=== PATIENT | female | born 1985 | race Caucasian/White ===

== ENCOUNTER 2020-03-02 20:00 | Inpatient (IN) | payer OTHER, SELFPAY ==
[2020-03-02 20:52] VITALS: BP 106/67; PULSE 100
--- NOTE | 2020-03-02 20:56 | P.PNAN_ITS ---
Anes - Eval Pre Procedure Procedure: labor epidural Date/Time: 03/02/20 20:56 Surgeon: Sushma Preop Diagnosis: pain during labor Pre Op Diagnosis: Labor Patient Data Age: 34 Gender: F Height: Weight: Last Vital Signs Pulse 100 03/02/20 20:52 BP 106/67 03/02/20 20:52 Allergies Allergy/AdvReac Type Severity Reaction Status Date / Time No Known Allergies Allergy Verified 02/23/20 13:40 Home Medications Medication Instructions Recorded Confirmed Type PNV cmb#95-ferrous fumarate-FA 1 tablet PO DAILY 02/23/20 02/23/20 History [] Laboratory Tests 03/02/20 03/02/20 20:51 20:51 WBC Pending RBC Pending Hgb Pending Hct Pending MCV Pending MCH Pending MCHC Pending RDW Pending Plt Count Pending MPV Pending Immature Gran % (Auto) Pending Neut % (Auto) Pending Lymph % (Auto) Pending [place] % (Auto) Pending Eos % (Auto) Pending Baso % (Auto) Pending Lymph # (Auto) Pending [place] # (Auto) Pending Eos # (Auto) Pending Baso # (Auto) Pending Abs Immat Gran (auto) Pending Absolute Neuts (auto) Pending Absolute Nucleated RBC Pending Nucleated RBC % Pending RPR Pending Patient hx anesthesia problems: none Family hx anesthesia problems: none PMFSH Family History Family History (Updated 02/23/20 @ 13:42 by Rosana Pimentel RN) Mother Hypertension Social History Social History Substance use: never Spiritual care concerns: No Exam Day of Procedure 03/02/20 20:56
[2020-03-02 20:57] LABS: Basophils Percent Auto 0.1 % (0.2-1.2); Eosinophils Absolute Auto 0.1 K/mm3 (0-0.3); Eosinophils Percent Auto 0.7 % (0-4.4); Hematocrit 38.3 % (37.0-47.0); Hemoglobin 13.1 g/dL (12.0-15.0); Immature Granulocyte Absolute 0.06 K/mm3 (0.00-0.031); Immature Granulocyte Percent A 0.6 % (0-0.5); Lymphocytes Percent Auto 17.1 % (18.3-44.2); Mean Corpuscular HGB Conc 34.2 g/dl (32-36); Mean Corpuscular Hemoglobin 32.6 pg (26-34); Mean Corpuscular Volume 95.3 fl (80-100); Mean Platelet Volume 11.2 fl (7.4-10.4); Monocytes Absolute Auto 0.7 K/mm3 (0.1-0.6); Monocytes Percent Auto 6.2 % (2.6-8.5); Neutrophils Percent Auto 75.3 % (45.5-73.1); Platelet Count Result 215 k/mm3 (150-375); Red Blood Count 4.02 M/mm3 (4.2-5.4); Red Cell Distribution Width 12.3 % (11.5-14.5); White Blood Count 10.5 K/mm3 (4.5-10.0)
[2020-03-02 21:00] VITALS: BP 110/70; PULSE 85; TEMP 36.6
[2020-03-02] MEDS: LACTATED RINGERS 1,000 ML 125 ML IV CONT (21:02)
[2020-03-02] MEDS: AMPICILLIN 2 GM/NS 100 ML 2 GM/100 ML BAG IVPB (21:03)
[2020-03-02 21:04] VITALS: BMI 34.5
--- NOTE | 2020-03-02 21:05 | LDADM ---
This patient, Cadence Asif, was admitted to Labor/Delivery/Recovery 106 on 03/02/20 at 20:00. Plans for labor, pain management and were discussed with patient. Patient/family oriented to hospital policies and general routines including ID bracelet, bed and alarms, visiting hours, pain management, procedures, bathroom and other care routines, personal items, smoking policy, room service/diet and guest tray routines, security routines, and visiting hours. Patient/Family are encouraged to report perceived risks to care and to ask questions if they do not understand what they are told or what they should do. See OBIX for further documentation.
--- NOTE | 2020-03-02 23:00 | P.HPUP_ITS ---
History and Physical Update Update Date/Time: 03/02/20 23:00 34 yo at 36w5d who presents complaining of contractions and possible leakage of fluid. She endorses good FM. She denies any vaginal bleeding. History and Physical has been reviewed, including an updated exam of the patie nt. There are NO changes in the patient's condition. Risks, benefits, and alternatives have been discussed and questions answered. Patient agrees to proceed with procedure. A/P 34 yo at 36w5d who presents in labor Rom plus negative 5 cm contractions q5 min FHT cat 1 GBS +, PCN in labor routine admission orders expectant management
[2020-03-02 23:55] VITALS: BP 119/69; PULSE 65; PULSE 66; O2SAT 100
[2020-03-02 23:57] VITALS: BP 120/74; PULSE 69
[2020-03-03] VITALS (143 sets, daily range): BP systolic 80–131; BP diastolic 38–90; PULSE 57–116; RESP 16–18; TEMP 36.4–37.3; O2SAT 94–100
[2020-03-03] MEDS: LACTATED RINGERS 1,000 ML 125 ML IV CONT ×3 (00:56→09:07)
[2020-03-03] MEDS: AMPICILLIN 1 GM/NS 50 ML 1 GM/50 ML BAG IVPB ×3 (00:56→09:06)
--- NOTE | 2020-03-03 07:45 | PM.OBPNLAB ---
Pain Control Date/time seen: 03/03/20 07:45 Pain control: tolerating well Pelvic Exam Dilation (cm): 6 Effacement (%): 70 station: -3 Amniotic membrane status: Ruptured Contractions Monitor mode: External Contraction frequency: 8 Status status: Category l Assessment and Plan Plan: begin patient augmentation (will start pitocin )
[2020-03-03] MEDS: OXYTOCIN 30 UNITS/NS 500 ML 30 UNITS/500 ML BAG IV CONT (08:15)
[2020-03-03 08:42] LABS: Rapid Plasma Reagin Non-Reactive (NonReactive)
--- NOTE | 2020-03-03 09:54 | PM.OBPRVD ---
OB - Delivery Note Procedure Procedure: Patient pushed for a spontaneous vaginal delivery. The fetus was delivered atraumatically and placed on the maternal abdomen. The cord was clamped and cut after 1 minute of life. The cord was double clamped and cut and a segment of cord was collected for cord gases. Cord blood was collected for blood type and Coomb's testing. The placenta delivered spontaneously and was noted to be intact. The perineum was inspected and there was a 2nd degree perineal laceration. The laceration was repaired with 3-0 vicryl in the usual fashion. The uterus was firm and good hemostasis was noted. The patient and fetus were stable in the delivery room. events: Labor < 37 Weeks Intrapartal events: None Induction method: none Delivery augmentation: pitocin Delivery monitor: external FHT Route of delivery: Episiotomy description: None Laceration description: Perineal - 2nd Degree Delivery repair: vicryl Specimen: No Estimated blood loss (mL): 300 Anesthesia type: Epidural Disposition: floor () Complications: No immediate complications Baby Date of : 03/03/20 Time of : 09:42 Weeks of gestation at delivery: 36 Infant gender: Male Weight (pounds): 8 Weight (ounces): 8 presentation: vertex position: Right Occiput Anterior Placenta delivery description: Spontaneous cord vessel description: 3 Vessels score one minute: 9 score five minutes: 9
[2020-03-03] MEDS: IBUPROFEN 600 MG TABLET PO ×2 (13:01→21:11)
[2020-03-03] MEDS: BENZOCAINE 20% AER SPR (*SP) 56 GM CAN 1 SPRAY TOPICAL (13:02)
[2020-03-03] MEDS: WITCH HAZEL 40 PADS 1 PAD TOPICAL (13:02)
[2020-03-03] MEDS: ACETAMINOPHEN 325 MG TABLET 650 MG PO (14:24)
[2020-03-04 04:38] LABS: Hematocrit 32.8 % (37.0-47.0); Hemoglobin 11.1 g/dL (12.0-15.0)
[2020-03-04] MEDS: ACETAMINOPHEN 325 MG TABLET 650 MG PO ×2 (07:44→16:22)
[2020-03-04] MEDS: DOCUSATE SODIUM 100 MG CAPSULE PO ×2 (07:44→16:21)
[2020-03-04] MEDS: MULTIVIT/MIN/PREN/FOL AC/IRON TABLET 1 TAB PO (07:44)
[2020-03-04] MEDS: IBUPROFEN 600 MG TABLET PO ×2 (07:44→16:21)
[2020-03-04] MEDS: BENZOCAINE 20% AER SPR (*SP) 56 GM CAN 1 SPRAY TOPICAL (07:45)
[2020-03-04 08:00] VITALS: BP 109/54; PULSE 61; RESP 18; TEMP 36.3; O2SAT 100
--- NOTE | 2020-03-04 08:04 | P.PNOB_ITS ---
OB - PN: Subj Subjective Date/time seen: 03/04/20 08:04 Patient comments: no complaints, pain well controlled and tolerating diet [place] feeding status: exclusively breast feeding Narrative: patient doing well this AM. No complaints. Pain is well controlled. She reports minimal bleeding. She is ambulating and voiding without difficulty. She is tolerating PO. She denies N/V, fever, chills. OB - PN: Obj Data Labs CBC & Chem 7: 03/04/20 03:45 Labs: Laboratory Results - last 24 hr 03/02/20 03/04/20 20:51 03:45 Hgb 11.1 L Hct 32.8 L RPR Non-reactive OB - PN A/P Plan day: 1 Plan: routine care Comments: patient doing well H/H stable plan for infant circumcision today continue routine care Time Spent With Patient Time: Total time spent is greater than 50% in coordination of care (as documented) at patient's floor/unit and/or counseling patient: Time with patient: less than 15 minutes Review of Systems Review of Systems: All systems reviewed & are unremarkable except as noted in HPI and below Exam Const: General: comfortable and no acute distress Resp: Effort & Inspection: normal respiratory effort Cardio: Rate: regular rate GI: GI Palp: Yes Soft to palpation and No Tenderness to palpation present (GI) Auscultation: normal bowel sounds Other: fundus firm and below umbilicus. Psych: Affect: normal affect
--- NOTE | 2020-03-04 08:08 | WPDANLDPN2 ---
Anes-Prog Note L&D Date/Time: 03/04/20 08:08 Comfortable throughout: labor and delivery Neuraxial method: epidural Epidural/Spinal procedure site: clean & non-tender Neuro status: Neuro function grossly intact. Cardiovascular status: normal Respiratory status: normal Airway patency: baseline Mental status: baseline Post-Op hydration status: normal Vital Signs: Last Vital Signs Temp 36.4 C L 03/03/20 18:30 Pulse 64 03/03/20 20:00 Resp 16 03/03/20 20:00 BP 101/66 03/03/20 18:30 Pulse Ox 98 03/03/20 20:00 Post-procedural complaints: none Patient feedback: Patient satisfied with anesthetic care.
--- NOTE | 2020-03-04 09:38 | PC.NURSE ---
Self care and infant care discharge instructions given to pt. including follow up visit date and time. Mother verbalized understanding. No questions or concerns noted. Pleasant and cooperative.
[2020-03-04 19:40] VITALS: BP 102/55; PULSE 55; RESP 18; TEMP 36.6; O2SAT 100
[2020-03-04] MEDS: CALCIUM CARBONATE (TUMS) 500 MG (200 MG ELEMENTAL) PO (20:04)
--- NOTE | 2020-03-05 06:36 | P.DS_ITS ---
OB - DS: Summary OB Procedures : None OB Procedures Intrapartum: Spontaneous Vag Delivery OB Procedures: : None Status at Discharge Functional status at discharge: independent ambulation Overall status at discharge: patient is back to baseline Time Spent with Patient Time attestation: Total time spent providing and/or coordinating discharge services: Time spent: Less than 30 minutes Exam Const: General: comfortable and no acute distress Resp: Effort & Inspection: normal respiratory effort Auscultation: clear to auscultation bilaterally Cardio: Rate: regular rate GI: GI Palp: Yes Soft to palpation Auscultation: normal bowel sounds Other: Fundus firm below umbilicus Psych: Appearance: grossly normal Mental Status: mental status grossly normal Affect: normal affect Discharge Plan Discharge Discharging Clinician: Joseph Ordaz Patient Disposition: Home, Self-Care Activity: as tolerated and pelvic rest Diet: regular Discharge Instructions: call or return for temperature >100.4, bleeding >2 pads/hr for 2 hrs, pain not controlled with medications, signs/symptoms of mastitis Patient Instructions: Antibiotic Form Stand Alone Forms: General Discharge Information Follow-up/Referrals: Austen Arana MD [Physician] - Discharge Medications: New acetaminophen [Mapap (acetaminophen)] 325 mg Tablet 650 mg PO Q6H PRN (Reason: Mild Pain (1-3) Or Headache) Qty: 30 RF: 0 ibuprofen 600 mg Tablet 600 mg PO Q6H PRN (Reason: Cramping) Qty: 30 RF: 0 Continued PNV cmb#95-ferrous fumarate-FA [] 28 mg iron- 800 mcg Tablet 1 tablet PO DAILY RF: 0 Discontinued calcium carbonate-vitamin D3 [Oysco 500/D] 500 mg(1,250mg) -200 unit Tablet 1 tablet PO BID RF: 0 Date of admission: 03/02/20 20:00 Primary Care Provider: 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
[2020-03-05 08:00] VITALS: BP 128/67; PULSE 78; RESP 18; TEMP 36.7
[2020-03-05] MEDS: DOCUSATE SODIUM 100 MG CAPSULE PO (08:24)
[2020-03-05] MEDS: ACETAMINOPHEN 325 MG TABLET 650 MG PO (08:24)
[2020-03-05] MEDS: IBUPROFEN 600 MG TABLET PO (08:25)
--- NOTE | 2020-03-05 08:35 | PC.NURSE ---
Patient viewed the discharge video Mother & Baby Care, The First Two Weeks . Patient was given the opportunity and encouraged to ask questions. Patient verbalized understanding of information shared and has been given the mother/baby guide for home reference.
[2020-03-05] MEDS: CALCIUM CARBONATE (TUMS) 500 MG (200 MG ELEMENTAL) PO (11:29)
--- NOTE | 2020-03-05 13:00 | PC.NURSE ---
Self care and infant care discharge instructions given including follow up visit date and time. Pt. verbalzied understanding. No questions or concerns voiced. Very pleasant and cooperative.
[2020-03-06 10:17] VITALS: BP 109/67; PULSE 59; RESP 20
== END 2020-03-05 13:58 | disposition home or self-care (01) | DRG 807 ==
LOC: ANHLDR 03-03 13:22 → ANHOB2 03-05 06:37 → ANHLDR 03-08 11:21 → ANHOB2 03-08 11:21
PROVIDERS: Admitting Provider Student in an Organized Health Care Education/Training Program; Visit Provider Student in an Organized Health Care Education/Training Program
DX: O99.824 Streptococcus B carrier state complicating childbirth (principal); Z37.0 Single live birth; O76 Abnormality in fetal heart rate and rhythm complicating labor and delivery; O70.1 Second degree perineal laceration during delivery; Z3A.36 36 weeks gestation of pregnancy
CPT/HCPCS: 36415; 85014; 85018; 85025; 86592; 86850; 86900; 86901; A9270; J0290; J2590; J2795; J7120

== ENCOUNTER 2021-03-10 10:17 | Emergency (ER) | payer BC, SELFPAY ==
[2021-03-10 10:34] VITALS: BP 123/73; PULSE 71; RESP 18; TEMP 37; O2SAT 100
--- NOTE | 2021-03-10 10:53 | ED.URI ---
HPI - URI/Sore Throat General Chief Complaint: Upper Respiratory Infection Stated Complaint: sinus infection Source: patient and RN notes reviewed Mode of arrival: ambulatory History of Present Illness HPI Narrative: This is a 35-year-old female who presented to urgent care with complaints of runny nose with greenish mucus to the left nare, decongestion, nasal pressure, tenderness to the left side of face including jaw and ear and occasional headaches. Patient notes that the symptoms developed on and she has since been in took [id number] Sudafed to relieve some of the symptoms. The patient denies SOB, CP, palpitation, extremity numbness, lightheadedness, dizziness, constipation, diarrhea, chills, or fever. Patient notes that she does have a history of years ago. Patient denies being around any one with ill. MD elicited complaint: rhinorrhea and nasal congestion Related Data Home Medications Medication Instructions Recorded Confirmed norgestimate-ethinyl estradiol 1 tablet PO DAILY 03/10/21 03/10/21 [[id number]] Allergies Allergy/AdvReac Type Severity Reaction Status Date / Time No Known Allergies Allergy Verified 03/10/21 10:29 Review of Systems Review of Systems: Narrative: A 14 organ system Review of Systems was performed and pertinent positives included in the HPI, otherwise remaining ROS is negative. [facility] Family History Family History (Updated 03/10/21 @ 10:56 by LIANA Maldonado-C) Mother Hypertension Other Family history non-contributory Social History Social History Smoking status: Never smoker Substance use: never Gender identity (if verbalized by the patient): Female Spiritual care concerns: No Exam Narrative: Exam Narrative: GENERAL: This is a well-nourished, well-developed patient, in no apparent distress. HEAD: normocephalic, atraumatic. EYES: PERRL. Sclera clear/white. Vision is grossly intact. EARS: External ears normal, auditory canals clear and without drainage, TMs normal without perforation. Hearing grossly intact. NOSE: External nose normal with no obvious nasal discharge, nares without redness, no rhinorrhea. THROAT: Mucous membranes moist, posterior pharynx edematous with erythema NECK: Neck supple, non-tender without lymphadenopathy, masses or thyromegaly. CARDIOVASCULAR: Regular rate and rhythm without murmurs, gallops, or rubs. RESPIRATORY: Clear to auscultation. Breath sounds equal bilaterally. No wheezes, rales, or rhonchi. GASTROINTESTINAL: Abdomen soft, non-tender, nondistended. Bowel sounds are active. No hepato-splenomegaly, or palpable masses. No guarding. SKIN: warm, intact with no suspicious lesions or rash, good texture and turgor. NEURO: awake, alert, and oriented to person, place and time. There were no obvious focal neurologic abnormalities. Steady gait EXTREMITIES: Normal range of motion. No edema. No calf tenderness. Negative Homans sign bilaterally. BACK: Nontender without deformity or crepitance. No flank tenderness. Course Course Emergency Course: Patient will receive Augmentin 500 mg twice daily x7 days. She is instructed to use [id number] antidecongestion and Tylenol for fever Strep Vital Signs Vital signs: Vital Signs Temperature 98.6 F 03/10/21 10:34 Pulse Rate 71 03/10/21 10:34 Respiratory Rate 18 03/10/21 10:34 Blood Pressure 123/73 03/10/21 10:34 Pulse Oximetry 100 03/10/21 10:34 Temperature 98.6 F 03/10/21 10:34 Pulse Rate 71 03/10/21 10:34 Respiratory Rate 18 03/10/21 10:34 Blood Pressure 123/73 03/10/21 10:34 Pulse Oximetry 100 03/10/21 10:34 MDM - URI/Sore Throat Differential Diagnosis Differential diagnosis: Likely upper respiratory infection, sinusitis, viral infection and pharyngitis Lab Data Attestation: I reviewed the patient's lab results. Lab results narrative: Strep negative Labs: Strep Screen Presumptive Negative
== END 2021-03-10 11:08 | disposition home or self-care (01) ==
PROVIDERS: Emergency Provider Nurse Practitioner
DX: J02.9 Acute pharyngitis, unspecified (principal)
CPT/HCPCS: 87081; 87880; 99213; G0463

== ENCOUNTER 2023-02-04 08:35 | Emergency (ER) | payer BC, SELFPAY ==
[2023-02-04 08:58] VITALS: BP 118/80; PULSE 67; RESP 16; TEMP 36.7; O2SAT 100
--- NOTE | 2023-02-04 09:51 | ED.EYEPROB ---
HPI - Eye Problem General Chief complaint: Eye Problems Stated complaint: lt eye irritation Time Seen by Provider: 02/04/23 09:45 Source: patient Mode of arrival: ambulatory Limitations: no limitations History of Present Illness HPI Narrative: 37-year-old female presented for complaint of left eye irritation since yesterday. She endorses mild redness and drainage this morning. Also reports a sore throat. She denies vision changes, photophobia, headache, foreign body sensation, fevers or chills. States children are sick with allergy symptoms. Not taking anything for symptoms. MD chief complaint: eye pain Related Data Home Medications Medication Instructions Recorded Confirmed norgestimate 0.18 mg/0.215 mg/0.25 1 tablet PO DAILY 03/10/21 02/04/23 mg-ethinyl estradiol 25 mcg tablet ([id number]) Allergies Allergy/AdvReac Type Severity Reaction Status Date / Time No Known Allergies Allergy Verified 02/04/23 08:44 Review of Systems Review of Systems: CONSTITUTIONAL: Denies body aches, fever, chills EYES: Reports left eye drainage and redness, Denies swelling, or pain, FB sensation, photophobia, visual changes ENT: Denies rhinorrhea, congestion, or otalgia. CARDIOVASCULAR: Denies chest pain, palpitations RESPIRATORY: Denies cough or dyspnea. GASTROINTESTINAL: Denies abdominal pain, nausea, vomiting, or diarrhea. SKIN: Denies rash, itching, or wounds. MUSCULOSKELETAL: Denies back pain, joint pain, or myalgia. NEUROLOGIC: Denies headache, numbness, tingling, or weakness. All systems reviewed & are unremarkable except as noted in HPI and below PMFSH Family History Family History Mother Hypertension Other Family history non-contributory Social History Social History Smoking status: Never smoker Substance use: never Gender identity (if verbalized by the patient): Female Spiritual care concerns: No Comments At time of signature, I have reviewed and agree with nursing past medical, surgical, social and family history unless otherwise noted. Please see nursing chart for further information. There is no relevant family history pertinent to the presenting complaint Exam Narrative: GENERAL: Well-appearing HEAD: Normocephalic, atraumatic. EYES: mild left conjunctival injection and yellow crust to lashes; no eye lid swelling/redness EOMI. Lid eversion showed no FB. ENT: Mucous membranes pink and moist. No rhinorrhea. TMs normal bilaterally. Throat mildly erythematous, no tonsillar swelling. Uvula midline. CHEST: Clear to auscultation. HEART: Regular rate and rhythm. ABDOMEN: Soft, nontender, nondistended SKIN: Warm, dry, no rash. Normal skin turgor. NEURO: No focal deficits. Alert and oriented x3 PSYCH: Normal affect. Course Course Emergency Course: Patient is aware of diagnosis, understands and agrees to treatment plan. Anticipatory guidance given. Patient agrees to follow-up as directed and is aware of reasons to seek care at the emergency department. Portions of this record may have been created with voice recognition software Level of Care: Express Care Visit Vital Signs Vital signs: Vital Signs Temperature 98.1 F 02/04/23 08:58 Pulse Rate 67 02/04/23 08:58 Respiratory Rate 16 02/04/23 08:58 Blood Pressure 118/80 02/04/23 08:58 Pulse Oximetry 100 02/04/23 08:58 Oxygen Delivery Room Air 02/04/23 08:58 Temperature 98.1 F 02/04/23 08:58 Pulse Rate 67 02/04/23 08:58 Respiratory Rate 16 02/04/23 08:58 Blood Pressure 118/80 02/04/23 08:58 Pulse Oximetry 100 02/04/23 08:58 Oxygen Delivery Room Air 02/04/23 08:58 MDM - Eye Problem MDM Narrative Medical decision making narrative: Discussed physical exam findings and test result. Advised supportive measures and signs/symptoms to go to the ER. Pt is
== END 2023-02-04 09:57 | disposition home or self-care (01) ==
PROVIDERS: Emergency Provider Nurse Practitioner Family
DX: H10.9 Unspecified conjunctivitis (principal)
CPT/HCPCS: 87081; 87880; 99213; G0463

== ENCOUNTER 2024-05-30 11:12 | Emergency (ER) | payer BC, SELFPAY ==
--- NOTE | 2024-05-30 11:14 | ED.EYEPROB ---
HPI - Eye Problem General Chief complaint: Eye Problems Stated complaint: EYE REDNESS Time Seen by Provider: 05/30/24 11:13 Source: patient Mode of arrival: ambulatory Limitations: no limitations History of Present Illness HPI Narrative: Cadence is a 39 bandar old female patient presenting to the clinic today with c/o eye redness and watering times 2-3 days. She has used an old prescription of ofloxacin eyedrops for the past 1-2 days. Denies any pain in the left eye but states there is itching. No visual changes or known eye injury. Related Data Home Medications Medication Instructions Recorded Confirmed norgestimate 0.18 mg/0.215 mg/0.25 1 tablet PO DAILY 03/10/21 02/04/23 mg-ethinyl estradiol 25 mcg tablet ([id number]) Allergies Allergy/AdvReac Type Severity Reaction Status Date / Time No Known Allergies Allergy Verified 05/30/24 11:22 Review of Systems Review of Systems: Pertinent positives per HPI. Patient denies any fever, chills, rash, headache, visual changes, dizziness, cough, runny nose, sore throat, shortness of breath, chest pain, palpitations, nausea, vomiting, diarrhea, constipation, abdominal pain, or any urinary issues. PMFSH Family History Family History Mother Hypertension Other Family history non-contributory Social History Social History Smoking status: Never smoker Substance use: never Gender identity (if verbalized by the patient): Female Spiritual care concerns: No Comments At the time of my signature, I reviewed and agree with the nursing past medical, surgical, social, and family history. There is no relevant family history pertinent to the patient complaint. Exam Narrative: General: Well-developed, well nourished, in no apparent distress Head: Normocephalic, atraumatic Eyes: Pupils equally round and reactive to light bilaterally, EOM intact, right sclera and conjunctive clear, no discharge, left sclera and conjunctiva mildly injected with watery discharge, lids normal Ears: TMs intact and clear, ear canals clear, no drainage, grossly hearing normal. Nose: Nares patent, no discharge, no inflammation, no sinus tenderness. Mouth: Oropharynx without lesions or masses, good dentition, MMM. Neck: Supple, trachea midline, no enlargement of anterior or posterior cervical nodes, no thyroid masses or goiter palpable. Cardio: Regular rate and rhythm, s1 and s2 normal, no murmur appreciated. Resp: Clear to auscultation bilaterally anteriorly and posteriorly, no rhonchi, rales, wheezing or rubs Course Course Emergency Course: Portions of this record may have been created with voice recognition software. Level of Care: Express Care Visit Vital Signs Vital signs: Vital signs reviewed MDM - Eye Problem MDM Narrative Medical decision making narrative: At the time of visit patient is resting comfortably on the exam table. Patient appears to be nontoxic. Plan: I suspect patient has acute allergic conjunctivitis. Prescription for azelastine drops was sent to the pharmacy. Supportive measures were discussed with the patient and they voiced understanding discharge instructions and agrees to treatment plan. Return precautions reviewed Differential Diagnosis Differential diagnosis: Likely corneal abrasion, conjunctivitis, acute iritis, hyphema, periorbital cellulitis, subconjunctival hemorrhage, glaucoma, corneal ulcer and ruptured globe Discharge Plan Discharge Clinical Impression: Acute allergic conjunctivitis of left eye Patient Disposition: Home, Self-Care Condition: Stable Instructions: Antibiotic Form, Conjunctivitis (ED) Additional Instructions: Practice good hand washing techniques Avoid touching eyes Instill eyedrops as prescribed May use warm moist washcloth to help remove eye discharge If eyes are tulio
[2024-05-30 11:19] VITALS: BP 142/71; PULSE 89; RESP 18; TEMP 36.6; O2SAT 100
== END 2024-05-30 11:30 | disposition home or self-care (01) ==
PROVIDERS: Emergency Provider Nurse Practitioner Family
DX: H10.12 Acute atopic conjunctivitis, left eye (principal)
CPT/HCPCS: 99213; G0463